=== PATIENT | female | born 1945 | race Caucasian/White ===

== ENCOUNTER 2017-08-07 16:12 | Emergency (ER) | payer OTHER ==
--- NOTE | 2017-08-07 16:20 | PDOC ---
History of Present Illness - History of Present Illness Initial Comments: 08/07/17 16:57 The patient is a 72F, with PMHx of HTN, diabetes, who presents with tongue laceration. Patient states that around 12:30 am she was walking on the sidewalk and a portion of the sidewalk was uneven, causing her to fall. She needed assistance to get up. Patient states that she went to urgent care earlier today and and was referred to the ER because they thought she needed stitches. Allergies: NKDA Surgical Hx: knee replacement. - General Chief Complaint: Laceration Stated Complaint: LEFT SIDE TONGUE LACERATION Time Seen by Provider: 08/07/17 16:17 Past History - Past Medical History Allergies/Adverse Reactions: Allergies Allergy/AdvReac Type Severity Reaction Status Date / Time No Known Allergies Allergy Verified 08/07/17 16:13 Home Medications: Ambulatory Orders Insulin (Levemir) [Levemir Vial] 30 unit SQ HS 08/07/17 Liraglutide [Victoza -] 1.8 mg SQ DAILY@0700 08/07/17 Losartan Potassium 50 mg PO DAILY 08/07/17 Metformin HCl [Metformin HCl ER] 1,000 mg PO DAILY 08/07/17 Review of Systems - Review of Systems Comments:: 08/07/17 17:05 Constitutional: no recent illness; no fever ENT: no sore throat Mouth: Loose dentition (front upper) Cardiovascular: no palpitations; no chest pain Pulmonary: no cough; no trouble breathing Gastrointestinal: No nausea; no vomiting; no diarrhea Genitourinary: No urinary problems; no hematuria Skin: +left sided tongue laceration. Lymph system: No swollen glands Musculoskeletal: No joint swelling Neurological: No weakness; No numbness; No Headache; no vertigo; no lightheadedness Psychiatric:No anxiety; no depression *Physical Exam - Vital Signs Last Vital Signs Temp Pulse Resp BP Pulse Ox 97.9 F 100 H 20 136/82 99 08/07/17 16:13 08/07/17 16:13 08/07/17 16:13 08/07/17 16:13 08/07/17 16:13 - Physical Exam Comments: 08/07/17 17:15 Vitals: Triage Vital signs reviewed General Appearance: no acute distress, well nourished well developed Head: Atraumatic Teeth: Upper front right tooth is loose. Neck: Supple; No Nuchal rigidity Chest Wall: Nontender Cardiac: Regular rate and rhythm, no murmurs, no rubs, no gallops Lungs: Clear to auscultation bilateral, good air movement bilaterally Extremities: Full range of motion to all extremities, no cyanosis, clubbing, or edema Skin: .5 cm laceration to left front tongue. Warm and dry, no rashes, no petechiae Neuro: AOX3; Cranial Nerves 2-12 grossly intact, Strength intact to all extremities, Sensation intact to all extremities, gait normal Procedures - Laceration/Wound Repair Left Upper Face Wound Length: to 2.5 cm Wound Explored: no foreign body present Wound's Depth, Shape: linear Anesthesia: 1% Lidocaine Wound Repaired With: Sutures Suture Size/Type: 4:0 (4.0 poly dissolvable sutures. ) Number of Sutures: 2 *DC/Admit/Observation/Transfer - Attestations Scribe Attestion: 08/07/17 17:17 Documentation prepared by Angelica Gibson, acting as medical policy specialist for Tiago Guajardo MD. Diagnosis at time of Disposition: Tongue laceration - Referrals Referrals: Massimo Adames MD [Staff Physician] - - Patient Instructions Printed Discharge Instructions: DI for Laceration Repair Additional Instructions: Stitches will dissolve. Eat soft foods for the next 2-3 days. Drink plenty fluids. [id number] Motrin or ibuprofen as directed on package. Follow-up with your dentist in 1-2 days for a loose front tooth. Ice all sore affected areas. Follow-up with Dr. Adames orthopedics for any shoulder or wrist pain. Return to the emergency department for any severe worsening symptoms headache vomiting or for any concerns.
[2017-08-07 16:41] VITALS: BP 136/82; PULSE 100; TEMP 97.9; BMI 26.9
== END 2017-08-07 17:08 | disposition home or self-care (01) ==
LOC: FER 16:12
PROC: 0HQ1XZZ Repair Face Skin, External Approach (ICD-10-PCS; principal; 2017-08-07)
DX: S01.512A Laceration without foreign body of oral cavity, initial encounter (principal); W18.39XA Other fall on same level, initial encounter; Y93.89 Activity, other specified; Y92.9 Unspecified place or not applicable; I10 Essential (primary) hypertension; E11.9 Type 2 diabetes mellitus without complications; Z79.4 Long term (current) use of insulin
CPT/HCPCS: 12011; 99283-25